=== PATIENT | male | born 1945 | race African-American/Black ===

== ENCOUNTER 2017-10-14 19:56 | Emergency (ER) | payer MEDICARE ==
[~2017-10-14] VITALS: Ht 193 cm; Wt 150.0 kg
[2017-10-14] MEDS ORDERED: HYDROCODONE/ACETAMINOPHEN 5/325MG TABLET PO ONE (20:30)
[2017-10-15] MEDS ORDERED: HYDROCODONE/ACETAMINOPHEN 5/325MG TABLET PO ONE (01:45)
[2017-10-15 03:28] VITALS: BP 137/62
== END 2017-10-15 03:29 | disposition short-term general hospital (02) ==
LOC: ER 19:56
DX: S72.491A Other fracture of lower end of right femur, initial encounter for closed fracture (principal); E11.22 Type 2 diabetes mellitus with diabetic chronic kidney disease; N18.6 End stage renal disease; W01.0XXA Fall on same level from slipping, tripping and stumbling without subsequent striking against object, initial encounter; Y93.89 Activity, other specified; Y99.8 Other external cause status; Y92.89 Other specified places as the place of occurrence of the external cause; Z96.651 Presence of right artificial knee joint; Z99.2 Dependence on renal dialysis
CPT/HCPCS: 73560; 82962; 99285